=== PATIENT | female | born 1990 | race Caucasian/White ===

== ENCOUNTER 2016-12-04 11:35 | Emergency (ER) | payer OTHER ==
--- NOTE | 2016-12-04 13:22 | UC ---
Respiratory Complaint HPI - HPI Summary HPI Summary: cough for 4 weeks now has right anterior rib pain, no sob, concerned she my have broken a rib coughing - History of Current Complaint Chief Complaint: UCRespiratory Stated Complaint: URI Time Seen by Provider: 12/04/16 13:16 Hx Obtained From: Patient Hx Last Menstrual Period: 11/07/16 ?: No Onset/Duration: Sudden Onset, Lasting Days, Still Present Timing: Constant Severity Initially: Moderate Severity Currently: Moderate Character: Cough: Nonproductive Aggravating Factors: Deep Breaths Alleviating Factors: Nothing - Allergies/Home Medications Allergies/Adverse Reactions: Allergies Allergy/AdvReac Type Severity Reaction Status Date / Time No Known Allergies Allergy Verified 12/04/16 12:54 PMH/Surg Hx/FS Hx/Imm Hx Previously Healthy: Yes Endocrine History Of: Denies: Diabetes, Thyroid Disease Cardiovascular History Of: Denies: Cardiac Disorders, Hypertension Respiratory History Of: Denies: COPD, Asthma GI/ History Of: Denies: Ulcer - Surgical History Surgical History: None - Family History Known Family History: Positive: None Family History: no cardiovascular issues in family lineage - Social History Occupation: Employed Full-time Lives: With Family Alcohol Use: None Substance Use Type: Marijuana Smoking Status (MU): Heavy Every Day Tobacco Smoker Have You Smoked in the Last Year: Yes Cessation Counseling: Counseled 3+Min - 10 Min Review of Systems Constitutional: Negative Skin: Negative Eyes: Negative ENT: Negative Respiratory: Cough Cardiovascular: Negative Gastrointestinal: Negative Genitourinary: Negative Motor: Negative Neurovascular: Negative Musculoskeletal: Arthralgia - rigth anterior lower rib Neurological: Negative Psychological: Negative All Other Systems Reviewed And Are Negative: Yes Physical Exam Triage Information Reviewed: Yes Appearance: Well-Appearing, No Pain Distress, Well-Nourished Vital Signs: Initial Vital Signs Temp 98.6 F 12/04/16 12:49 Pulse 79 12/04/16 12:49 Resp 18 12/04/16 12:49 BP 103/60 12/04/16 12:49 Pulse Ox 96 12/04/16 12:49 Vital Signs Reviewed: Yes Eye Exam: Normal Eyes: Positive: Conjunctiva Clear ENT Exam: Normal ENT: Positive: Normal ENT inspection, Hearing grossly normal, Pharynx normal. Negative: Nasal congestion, Nasal drainage, Trismus, Muffled/hoarse voice Dental Exam: Normal Neck exam: Normal Neck: Positive: Supple, Nontender, No Lymphadenopathy Respiratory Exam: Normal Respiratory: Positive: Chest non-tender, Lungs clear, Normal breath sounds, No respiratory distress, No accessory muscle use Cardiovascular Exam: Normal Cardiovascular: Positive: RRR, No Murmur, Pulses Normal, Brisk Capillary Refill Musculoskeletal Exam: Normal Musculoskeletal: Positive: Strength Intact, ROM Intact, No Edema Neurological Exam: Normal Neurological: Positive: Alert, Muscle Tone Normal Psychological Exam: Normal Skin Exam: Normal UC Diagnostic Evaluation - Laboratory O2 Sat by Pulse Oximetry: 96 Diagnostic Studies Comment: no evidence of displaced rib fx, no pulmonary issue Respiratory Course/Dx - Course Course Of Treatment: ibuprofen, muscle relaxer, rest ice, nicotine cesation information follow with pcp - Differential Dx/Diagnosis Differential Diagnosis/HQI/PQRI: Bronchitis, Exacerbation Of COPD, Laryngitis, Lower Resp Infection, Pneumothorax, Other - rib fx, costal chondritis Provider Diagnoses: Rib strain (r), nicotine dependant Discharge - Discharge Plan Condition: Stable Disposition: HOME Prescriptions: Ibuprofen TAB* [Motrin TAB* 600 MG] 600 mg PO Q6H PRN #30 tab PRN Reason: Pain Patient Education Materials: Ibuprofen (By mouth), How to Stop Smoking (ED), Cigarette Smoking and Your Health (GEN), Heat Pack Application (ED), Chest Wall Pain (ED) Referrals: [facility] [Outside] - If Needed No Primary Care Phys,NOPCP [Primary Care Provider] -
[2016-12-04 13:55] VITALS: BP 109/62
--- NOTE | 2016-12-04 14:17 | RAD ---
Indication: RIGHT anterior rib pain. Upper respiratory infection. Cough for one month. History of tobacco use. Comparison: None. Technique: PA chest and 4 view RIGHT unilateral rib series Report: RIGHT inferolateral skin marker noted indicating the site of clinical concern. Negative for RIGHT rib fracture. Symmetric bilateral nipple shadows noted. No alveolar infiltrate, focal pulmonary lesion, pleural effusion, pneumothorax. The heart, pulmonary vasculature, and mediastinal contours are unremarkable. IMPRESSION: No evidence for pneumonia, RIGHT rib fracture, or pneumothorax.
== END 2016-12-04 14:44 | disposition home or self-care (01) ==
LOC: UCEAST 11:35
DX: S23.41XA Sprain of ribs, initial encounter (principal); F12.90 Cannabis use, unspecified, uncomplicated; F17.210 Nicotine dependence, cigarettes, uncomplicated
CPT/HCPCS: 99212; G0463

== ENCOUNTER 2017-04-02 00:25 | Emergency (ER) | payer OTHER ==
[2017-04-02] MEDS ORDERED: Acetaminop/Codeine 30 MG TAB* 1 TAB (300 MG/30 MG) PO ONE (00:41)
[2017-04-02] MEDS ORDERED: Ketorolac INJ* 60 MG/2 ML VIAL IM ONE (00:41)
[2017-04-02] MEDS ORDERED: Amoxicillin PO (*) 250 MG CAP PO ONE (00:41)
--- NOTE | 2017-04-02 01:26 | ED ---
Throat Pain/Nasal Congestion - HPI Summary HPI Summary: Pt here w/ Lt lower tooth pain. Has had this for a few weeks and trying to ignore it but getting progressively worse. Pain radiates into ear at times - sharp. Tooth is mostly decayed here. Denies drainage or foul taste in mouth as well as nausea, vomiting, neck pain, trouble swallowing, headache. Has had intermittent fevers. Tried tylenol earlier tonight w/ minimal relief. Has tried ibuprofen as well. States she's postponed seeing a dentist because she hates going there, but has a list and plans to call tomorrow. - History of Current Complaint Chief Complaint: EDDentalPain Time Seen by Provider: 04/02/17 00:30 Hx Obtained From: Patient - Allergies/Home Medications Allergies/Adverse Reactions: Allergies Allergy/AdvReac Type Severity Reaction Status Date / Time No Known Allergies Allergy Verified 04/02/17 00:29 PMH/Surg Hx/FS Hx/Imm Hx Previously Healthy: Yes Endocrine/Hematology History: Denies: Hx Diabetes, Hx Thyroid Disease, Autoimmune Disease Cardiovascular History: Denies: Hx Hypertension Respiratory History: Denies: Hx Asthma, Hx Chronic Obstructive Pulmonary Disease (COPD) GI History: Denies: Hx Ulcer Infectious Disease History: No Infectious Disease History: Denies: Hx Hepatitis, Hx Human Immunodeficiency Virus (HIV), Traveled Outside the [place] in Last 30 Days - Family History Known Family History: Positive: None Family History: no cardiovascular issues in family lineage - Social History Occupation: Employed Full-time Lives: With Family Alcohol Use: Rare Substance Use Type: Reports: Marijuana - few times a week Hx Tobacco Use: Yes Smoking Status (MU): Current Every Day Smoker Amount Used/How Often: 8 cigs per day Have You Smoked in the Last Year: Yes Review of Systems Constitutional: Other - see HPI Positive: Dental Pain - see HPI, Ear Ache - see HPI. Negative: Sore Throat, Nasal Discharge Negative: Chest Pain Negative: Shortness Of Breath Gastrointestinal: Negative Positive: no symptoms reported Negative: Arthralgia, Myalgia - no jaw pain Skin: Negative Neurological: Negative Psychological: Normal All Other Systems Reviewed And Are Negative: Yes Physical Exam Triage Information Reviewed: Yes Vital Signs On Initial Exam: Initial Vitals Temp Pulse Resp BP Pulse Ox 99.2 F 117 16 142/85 100 04/02/17 00:25 04/02/17 00:25 04/02/17 00:25 04/02/17 00:25 04/02/17 00:25 Vital Signs Reviewed: Yes Appearance: Positive: Well-Appearing, Well-Nourished, Pain Distress - mild to moderate Skin: Positive: Warm, Dry Head/Face: Positive: Normal Head/Face Inspection - no edema Eyes: Positive: Normal, EOMI, Conjunctiva Clear ENT: Positive: Hearing grossly normal, Pharynx normal, TMs normal. Negative: Nasal congestion, Nasal drainage, Tonsillar swelling, Tonsillar exudate Dental: Positive: Gross Decay/Caries @ - #21 - TTP w/ decayed material within cavity - surrounding tissue w/ mild erythema - no richelle edema, no d/c, no pustule, no drainage Neck: Positive: Supple, Nontender, No Lymphadenopathy Respiratory/Lung Sounds: Positive: Breath Sounds Present. Negative: Stridor Cardiovascular: Positive: Normal, RRR Abdomen Description: Positive: Nontender, Soft Bowel Sounds: Positive: Present Musculoskeletal: Positive: Normal, Strength/ROM Intact Neurological: Positive: Normal, Sensory/Motor Intact, Alert, Oriented to Person Place, Time, CN Intact II-III Psychiatric: Positive: Normal Diagnostics - Vital Signs Vital Signs Temp Pulse Resp BP Pulse Ox 04/02/17 00:38 120 99 04/02/17 00:36 99 F 108 18 121/78 100 04/02/17 00:25 99.2 F 117 16 142/85 100 - Laboratory Lab Statement: Any lab studies that have been ordered have been reviewed, and results considered in the medical decision making process. EENT Course/Dx - Diagnoses Provider Diagnoses: Dental infection Discharge - Discharge Plan Condition: Stable Disposition: HOME Prescriptions: Acetaminop/Codeine 30 MG TAB* [Tylenol/Codeine 30 MG TAB*] 1 tab PO Q6H PRN #15 tab MDD 4 PRN Reason: Pain Amoxicillin PO (*) [Amoxicillin 500 MG CAP*] 500 mg PO TID #29 cap Ibuprofen TAB* [Motrin TAB* 600 MG] 600 mg PO Q6H PRN #20 tab PRN Reason: Pain Patient Education Materials: Toothache (ED) Forms: *Work Release Referrals: No Primary Care Phys,NOPCP [Primary Care Provider] - Additional Instructions: You appear to have tooth decay triggering minor infection of the gingiva. Use oral saline rinses multiple times a day to aid in healing, swelling and pain. Complete antibiotic Stay hydrated You may alternate ibuprofen with tylenol for pain. Tylenol with codeine has been prescribed to help you sleep. Follow-up with dentist this week *If you develop trouble swallowing, facial swelling, fever, neck stiffness, headache, vomiting, return to ED
[2017-04-02 01:35] VITALS: BP 110/70
== END 2017-04-02 01:30 | disposition home or self-care (01) ==
LOC: ED 00:25
DX: K08.89 Other specified disorders of teeth and supporting structures (principal); F17.210 Nicotine dependence, cigarettes, uncomplicated
CPT/HCPCS: 96372; 99282; A9270-GY; J1885

== ENCOUNTER 2017-04-28 17:19 | Emergency (ER) | payer OTHER ==
[2017-04-28 17:32] VITALS: BP 122/65
--- NOTE | 2017-05-01 15:16 | UC ---
UC Dental HPI - HPI Summary HPI Summary: right lower dental pain and swelling - History of Current Complaint Chief Complaint: UCDentalProblem Stated Complaint: DENTAL PAIN Time Seen by Provider: 04/28/17 18:40 Hx Obtained From: Patient Hx Last Menstrual Period: 03/31/17 ?: No Onset/Duration: Gradual Onset, Lasting Days, Still Present Severity: Moderate Pain Intensity: 6 Pain Scale Used: 0-10 Numeric Aggravating: Nothing Alleviating: Nothing Related History: Previous Dental Care on Same Tooth - Allergies/Home Medications Allergies/Adverse Reactions: Allergies Allergy/AdvReac Type Severity Reaction Status Date / Time No Known Allergies Allergy Verified 04/28/17 17:32 PMH/Surg Hx/FS Hx/Imm Hx Previously Healthy: Yes - Surgical History Surgical History: None - Family History Known Family History: Positive: None Family History: no cardiovascular issues in family lineage - Social History Occupation: Employed Full-time Lives: With Family Alcohol Use: Rare Substance Use Type: Marijuana Smoking Status (MU): Current Every Day Smoker Amount Used/How Often: 8 cigs per day Have You Smoked in the Last Year: Yes Cessation Counseling: Patient Advised to Stop Review of Systems Constitutional: Negative Skin: Negative Eyes: Negative ENT: Dental Pain Respiratory: Negative Cardiovascular: Negative Gastrointestinal: Negative Genitourinary: Negative Motor: Negative Neurovascular: Negative Musculoskeletal: Negative Neurological: Negative Psychological: Negative All Other Systems Reviewed And Are Negative: Yes Physical Exam Triage Information Reviewed: Yes Appearance: Well-Appearing, No Pain Distress, Well-Nourished Vital Signs: Initial Vital Signs Temp 99.4 F 04/28/17 17:27 Pulse 79 04/28/17 17:27 Resp 18 04/28/17 17:27 BP 122/65 04/28/17 17:27 Pulse Ox 100 04/28/17 17:27 Vital Signs Reviewed: Yes Eye Exam: Normal Eyes: Positive: Conjunctiva Clear ENT Exam: Normal ENT: Positive: Normal ENT inspection, Hearing grossly normal, TMs normal. Negative: Nasal congestion, Nasal drainage, Trismus, Muffled/hoarse voice Dental Exam: Normal Neck exam: Normal Neck: Positive: Supple, Nontender Respiratory Exam: Normal Respiratory: Positive: Chest non-tender, No respiratory distress, No accessory muscle use Cardiovascular Exam: Normal Cardiovascular: Positive: RRR, Pulses Normal, Brisk Capillary Refill Musculoskeletal Exam: Normal Musculoskeletal: Positive: Strength Intact, ROM Intact, No Edema Neurological Exam: Normal Neurological: Positive: Alert, Muscle Tone Normal Psychological Exam: Normal Skin Exam: Normal Dental Complaint Course/Dx - Course Course Of Treatment: ibuprofen, amoxicillin follow with dentist shar - Differential Dx/Diagnosis Differential Diagnosis/Dx: Dental Abscess, Dental Caries, Odontogenic Pain, Post Extraction Pain Provider Diagnoses: Post extraction pain and abscess left lower jaw Discharge - Discharge Plan Condition: Stable Disposition: HOME Prescriptions: Amoxicillin PO (*) [Amoxicillin 500 MG CAP*] 500 mg PO TID #30 cap Patient Education Materials: Dental Abscess (ED), Toothache (ED) Referrals: [facility] [place] [facility] [Outside] - If Needed Additional Instructions: [facility] at [facility] Dent[facility] as planned
== END 2017-04-28 19:00 | disposition home or self-care (01) ==
LOC: UCEAST 17:19
DX: K08.409 Partial loss of teeth, unspecified cause, unspecified class (principal); M27.2 Inflammatory conditions of jaws; F12.90 Cannabis use, unspecified, uncomplicated; F17.210 Nicotine dependence, cigarettes, uncomplicated
CPT/HCPCS: 99212; G0463

== ENCOUNTER 2017-12-28 08:12 | Emergency (ER) | payer OTHER ==
[2017-12-28 08:23] VITALS: BP 115/64
--- NOTE | 2017-12-28 09:22 | UC ---
Throat Pain/Nasal Fredrick HPI - HPI Summary HPI Summary: ONSET YESTERDAY OF ST, PAIN WITH SWALLOWING, RIGHT EAR PAIN. NO FEVER. MILD COUGH AND CONGESTION. IS CONCERNED ABOUT STREP. - History of Current Complaint Chief Complaint: UCRespiratory Stated Complaint: SORE THROAT, EAR PAIN Time Seen by Provider: 12/28/17 09:11 Hx Obtained From: Patient Hx Last Menstrual Period: 12/21/17 Onset/Duration: Gradual Onset, Lasting Days, Still Present Severity: Moderate Pain Intensity: 5 Pain Scale Used: 0-10 Numeric Cough: Nonproductive Associated Signs & Symptoms: Negative: Wheezing, Fever, Rash - Allergies/Home Medications Allergies/Adverse Reactions: Allergies Allergy/AdvReac Type Severity Reaction Status Date / Time No Known Allergies Allergy Verified 12/28/17 08:23 Home Medications: Home Medications Nuva Ring 12/28/17 [History] Vitamin B Complex TAB* [B Complex-50*] 1 tab PO DAILY 12/28/17 [History Confirmed 12/28/17] PMH/Surg Hx/FS Hx/Imm Hx Previously Healthy: Yes - Surgical History Surgical History: None - Family History Known Family History: Positive: None Family History: no cardiovascular issues in family lineage - Social History Alcohol Use: Occasionally Substance Use Type: Marijuana Substance Use Comment - Amount & Last Used: weekly Smoking Status (MU): Light Every Day Tobacco Smoker Type: Cigarettes Amount Used/How Often: 8 cigs per day Have You Smoked in the Last Year: Yes Review of Systems Constitutional: Negative ENT: Sore Throat, Ear Ache, Nasal Discharge Respiratory: Cough Cardiovascular: Negative Gastrointestinal: Negative All Other Systems Reviewed And Are Negative: Yes Physical Exam Triage Information Reviewed: Yes Appearance: Well-Appearing, No Pain Distress, Well-Nourished Vital Signs: Initial Vital Signs Temp 97.5 F 12/28/17 08:18 Pulse 88 12/28/17 08:18 Resp 16 12/28/17 08:18 BP 115/64 12/28/17 08:18 Pulse Ox 99 12/28/17 08:18 Vital Signs Reviewed: Yes Eyes: Positive: Conjunctiva Clear ENT: Positive: Hearing grossly normal, Pharynx normal, TMs normal Neck: Positive: Supple, Tenderness @ - SHOTTY SPFL CERVICAL LAD - RIGHT, Enlarged Nodes @ - SHOTTY SPFL CERVICAL LAD - RIGHT Respiratory Exam: Normal Cardiovascular Exam: Normal Abdomen Description: Positive: Soft Musculoskeletal: Positive: No Edema Neurological: Positive: Alert Psychological: Positive: Age Appropriate Behavior Skin: Negative: rashes Diagnostics - Laboratory Diagnostic Studies Completed/Ordered: STREP NEG Throat Pain/Nasal Course/Dx - Differential Dx/Diagnosis Provider Diagnoses: ACUTE PHARYNGITIS Discharge - Sign-Out/Discharge Documenting (check all that apply): Discharge/Admit/Transfer - Discharge Plan Condition: Stable Disposition: HOME Patient Education Materials: Pharyngitis (ED) Referrals: No Primary Care Phys,NOPCP [Primary Care Provider] - Additional Instructions: STREP TEST NEGATIVE. YOUR SYMPTOMS ARE LIKELY VIRALLY MEDIATED AND SHOULD RESOLVE ON THEIR OWN WITH TIME. NO INDICATION FOR ANTIBIOTICS AT PRESENT. REST, HYDRATE, OTC MEDS NEEDED. SEEK FOLLOW-UP IF YOU ARE NOT IMPROVING OVER THE NEXT 1-2 WEEKS. - Billing Disposition and Condition Condition: STABLE Disposition: HOME
== END 2017-12-28 09:45 | disposition home or self-care (01) ==
LOC: UCEAST 08:12
DX: J02.9 Acute pharyngitis, unspecified (principal); F17.210 Nicotine dependence, cigarettes, uncomplicated
CPT/HCPCS: 87651; 99211; G0463

== ENCOUNTER 2019-06-06 16:19 | Emergency (ER) | payer OTHER ==
[2019-06-06 16:51] VITALS: BP 124/77
--- NOTE | 2019-06-06 16:57 | UC ---
Throat Pain/Nasal Fredrick HPI - HPI Summary HPI Summary: 28 yo female presents with sore throat and right ear pain for the last 2 days. 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 She has significant pain with swallowing and has been eating soft foods and soups due to this. Has been taking ibuprofen with mild relief of discomfort. Denies fever, chills, sinus symptoms, rash, cough. - History of Current Complaint Chief Complaint: UCEar Stated Complaint: EAR PAIN Time Seen by Provider: 06/06/19 16:57 Hx Obtained From: Patient Hx Last Menstrual Period: 3 weeks ago Onset/Duration: Sudden Onset Severity: Moderate Pain Intensity: 5 Pain Scale Used: 0-10 Numeric - Allergies/Home Medications Allergies/Adverse Reactions: Allergies Allergy/AdvReac Type Severity Reaction Status Date / Time No Known Allergies Allergy Verified 06/06/19 16:47 PMH/Surg Hx/FS Hx/Imm Hx - Additional Past Medical History Additional PMH: None - Surgical History Surgical History: None - Family History Known Family History: Positive: None Family History: no cardiovascular issues in family lineage - Social History Occupation: Employed Full-time Lives: With Family Alcohol Use: Daily Substance Use Type: Marijuana Substance Use Comment - Amount & Last Used: daily Smoking Status (MU): Light Every Day Tobacco Smoker Type: Cigarettes Amount Used/How Often: 8 cigs per day Have You Smoked in the Last Year: Yes Review of Systems All Other Systems Reviewed And Are Negative: No Constitutional: Positive: Negative Skin: Positive: Negative Eyes: Positive: Negative ENT: Positive: Sore Throat, Ear Ache Respiratory: Positive: Negative Cardiovascular: Positive: Negative Gastrointestinal: Positive: Negative Neurovascular: Positive: Negative Neurological: Positive: Negative Psychological: Positive: Negative Physical Exam - Summary Physical Exam Summary: GENERAL: NAD. WDWN. No pain distress. SKIN: No rashes, sores, lesions, or open wounds. HEENT: Head: AT/NC Eyes: Conjunctiva clear without inflammation or discharge. Ears: Hearing grossly normal. TMs intact, no bulging, erythema, or edema. Nose: Nasal mucosa pink and moist. NTTP maxillary and frontal sinus. Throat: Posterior oropharynx moderate erythema and 3+ tonsillar enlargement on right. Scant white exudates. Uvula midline. No hoarse voice or muffled voice. NECK: Supple. Mild TTP tonsillar LAD. No abscess appreciated CHEST: CTAB. No r/r/w. No accessory muscle use. Breathing comfortably and in no distress. CV: RRR.. Pulses intact. Cap refill <2seconds NEURO: Alert. PSYCH: Age appropriate behavior. Triage Information Reviewed: Yes Vital Signs: Initial Vital Signs Temp 98.4 F 06/06/19 16:46 Pulse 85 06/06/19 16:46 Resp 18 06/06/19 16:46 BP 124/77 06/06/19 16:46 Pulse Ox 100 06/06/19 16:46 Laboratory Tests 06/06/19 17:08 Group A Strep Rapid Negative Vital Signs Reviewed: Yes Throat Pain/Nasal Course/Dx - Course Course Of Treatment: POC strep negative. Given her exam and exposure to strep at her place of work - will treat with amoxicillin and send her throat culture for full culture. - Differential Dx/Diagnosis Provider Diagnosis: Pharyngitis Discharge ED - Sign-Out/Discharge Documenting (check all that apply): Patient Departure All imaging exams completed and their final reports reviewed: No Studies - Discharge Plan Condition: Stable Disposition: HOME Prescriptions: Amoxicillin PO (*) [Amoxicillin 400 MG/5 ML SUSP*] 480 mg PO BID #120 ml Patient Education Materials: Pharyngitis (ED) Referrals: Aimee Mejia MD [Primary Care Provider] - Additional Instructions: If you develop a fever, shortness of breath, chest pain, new or worsening symptoms - please call your PCP or go to the ED immediately. - Billing Disposition and Condition Condition: STABLE Disposition: Home
--- NOTE | 2019-06-08 15:49 | UC ---
- Progress Note Progress Note: Tx'd for strep based on exposure, neg rapid strep, cultures negative, nurse to call and stop abx. f/u with PCP if repeat symptoms. -Hailey LEVI Course/Dx - Diagnoses Provider Diagnoses: Pharyngitis Discharge ED - Sign-Out/Discharge Documenting (check all that apply): Patient Departure All imaging exams completed and their final reports reviewed: No Studies - Discharge Plan Condition: Stable Disposition: HOME Prescriptions: Amoxicillin PO (*) [Amoxicillin 400 MG/5 ML SUSP*] 480 mg PO BID #120 ml Patient Education Materials: Pharyngitis (ED) Referrals: Aimee Mejia MD [Primary Care Provider] - Additional Instructions: If you develop a fever, shortness of breath, chest pain, new or worsening symptoms - please call your PCP or go to the ED immediately. - Billing Disposition and Condition Condition: STABLE Disposition: Home
== END 2019-06-06 17:32 | disposition home or self-care (01) ==
LOC: UCEAST 16:19
DX: J02.9 Acute pharyngitis, unspecified (principal); H92.01 Otalgia, right ear; F17.210 Nicotine dependence, cigarettes, uncomplicated
CPT/HCPCS: 87070; 87651; 99212; G0463

== ENCOUNTER 2022-07-02 09:06 | Observation (INO) ==
[2022-07-02] MEDS ORDERED: Ondansetron 4 mg VIAL 2 MG/ML 2 ml VIAL IV ONE (09:48)
[2022-07-02] MEDS ORDERED: Acetaminophen IV 1 GM/100ML 1,000 MG/100 ML BAG IV ONE (09:49)
[2022-07-02 10:19] LABS: ABS Lymphocytes 0.9 10^3/ul (1.0-4.8); ABS Monocytes 0.7 10^3/ul (0-0.8); ABS Neutrophils 9.6 10^3/ul (1.5-7.7); Eosinophil % 0.3 %; Hematocrit 41 % (35-47); Hemoglobin 13.8 g/dL (12.0-16.0); Lymphocyte % 7.8 %; Mean Corpuscular HGB Conc 34 g/dL (31-36); Mean Corpuscular Hemoglobin 33 pg (27-31); Mean Corpuscular Volume 97 fL (80-97); Mean Platelet Volume 8.6 fL (7.4-10.4); Platelet Count 156 10^3/uL (150-450); Red Cell Distribution Width 14 % (10-15); White Blood Count 11.2 10^3/uL (3.5-10.8)
[2022-07-02 10:29] LABS: INR 1.04 (0.89-1.11)
[2022-07-02 10:51] LABS: ALT 32 U/L (7-52); AST 41 U/L (13-39); Albumin 4.2 g/dL (3.2-5.2); Albumin/Globulin Ratio 1.4 (1-3); Alkaline Phosphatase 92 U/L (35-149); Anion Gap 19 mmol/L (2-11); Blood Urea Nitrogen 9 mg/dL (6-24); C Reactive Protein 366.12 mg/L (<8.01); CO2 Carbon Dioxide 20 mmol/L (22-32); Calcium 8.1 mg/dL (8.6-10.3); Chloride 94 mmol/L (101-111); Glucose 96 mg/dL (70-100); Magnesium 1.9 mg/dL (1.9-2.7); Potassium 3.3 mmol/L (3.5-5.0); Sodium 133 mmol/L (135-145); Total Protein 7.2 g/dL (6.4-8.9); eGFR CKD-EPI 118.5 (>60)
[2022-07-02 10:57] LABS: HCG Pregnancy < 0.60 mIU/mL
[2022-07-02] MEDS ORDERED: Lactated Ringers 1000 ml BAG 1,000 ML IV ONE ×2 (11:17→11:50)
[2022-07-02] MEDS ORDERED: Morphine 4 MG/ML VIAL (1 ml) IV ONE (11:17)
[2022-07-02 11:20] LABS: Urine Appearance Cloudy; Urine Bilirubin Negative (Negative); Urine Blood 2+ (Negative); Urine Color Yellow; Urine Glucose Negative (Negative); Urine Ketones 2+ (Negative); Urine Nitrite Negative (Negative); Urine Protein 2+(100 mg/dL) (Negative); Urine Specific Gravity 1.026 (1.002-1.030); Urine Urobilinogen Negative (Negative)
[2022-07-02] MEDS ORDERED: Iohexol 350 (CONTRAST) 500 ML MDV IV ONE (11:21)
[2022-07-02 11:27] LABS: Urine Bacteria 1+ (Absent); Urine Red Blood Cell Trace(0-2/hpf) (Absent); Urine Squamous Epithelial Cell Present (Absent); Urine White Blood Cell Trace(0-5/hpf) (Absent)
[2022-07-02 11:36] LABS: Lipase 3272 U/L (11.0-82.0)
[2022-07-02 12:36] LABS: Triglycerides 87 mg/dL
[2022-07-02] MEDS: KCL 20 MEQ/100 ML IVPREMIX 20 MEQ/100 ML BAG IV SCH ×2 (13:13→15:29)
[2022-07-02] MEDS ORDERED: Magnesium Sulfate 2 gm BAG 2 GM/50 ML BAG IVPB ONE (13:43)
[2022-07-02] MEDS ORDERED: Lactated Ringers 1000 ml BAG 1,000 ML IV SCH (14:00)
[2022-07-02] MEDS: Morphine 2 MG/ML SYRINGE IV PRN ×2 (14:20→21:43)
[2022-07-02 15:27] LABS: LDH 202 U/L (140-271)
[2022-07-02] MEDS: HYDROmorphone 1 MG/1 ML SYRINGE IV SLOW PU PRN ×2 (16:35→23:58)
[2022-07-02] MEDS: Ondansetron 4 mg VIAL 2 MG/ML 2 ml VIAL IV PRN (16:35)
[2022-07-02] MEDS: Thiamine 100 MG/ML 2 ml VIAL 100 MG in NS 0.9% 50 ML 50 ML IV SCH (20:40)
[2022-07-02] MEDS: Magnesium Hydroxide LIQ 30 ML UDC PO SCH (20:41)
[2022-07-02] MEDS: Lactated Ringers 1000 ml BAG 1,000 ML IV SCH (21:33)
[2022-07-03] MEDS: Ondansetron 4 mg VIAL 2 MG/ML 2 ml VIAL IV PRN ×2 (00:05→10:35)
[2022-07-03] MEDS: Lactated Ringers 1000 ml BAG 1,000 ML IV SCH ×4 (00:31→23:26)
[2022-07-03] MEDS: Morphine 2 MG/ML SYRINGE IV PRN ×4 (01:49→18:41)
[2022-07-03 05:52] LABS: CO2 Carbon Dioxide 19 mmol/L (22-32); Calcium 7.4 mg/dL (8.6-10.3); Chloride 99 mmol/L (101-111); Hematocrit 35 % (35-47); Hemoglobin 11.4 g/dL (12.0-16.0); Mean Corpuscular HGB Conc 33 g/dL (31-36); Mean Corpuscular Hemoglobin 33 pg (27-31); Mean Corpuscular Volume 102 fL (80-97); Red Blood Count 3.43 10^6 /uL (3.70-4.87); Red Cell Distribution Width 14 % (10-15); Sodium 129 mmol/L (135-145); White Blood Count 10.3 10^3/uL (3.5-10.8)
[2022-07-03 05:53] LABS: Anion Gap 11 mmol/L (2-11)
[2022-07-03 05:58] LABS: Blood Urea Nitrogen 5 mg/dL (6-24); Glucose 89 mg/dL (70-100); eGFR CKD-EPI 129.8 (>60)
[2022-07-03 06:56] LABS: Magnesium 2.2 mg/dL (1.9-2.7); Potassium Redraw 3.2 mmol/L (3.5-5.0)
[2022-07-03] MEDS ORDERED: Potassium Chlor 20 meq TAB.ER PO ONE (07:25)
[2022-07-03 07:37] LABS: ABS Eosinophils 0.2 10^3/ul (0-0.6); ABS Lymphocytes 1.2 10^3/ul (1.0-4.8); ABS Monocytes 0.9 10^3/ul (0-0.8); Eosinophil % 1.5 %; Platelet Count Platelets clumped. 10^3/uL (150-450)
[2022-07-03] MEDS: Magnesium Hydroxide LIQ 30 ML UDC PO SCH (08:53)
[2022-07-03] MEDS ORDERED: Potassium Chloride LIQUID 20 MEQ/15 ML LIQUID PO ONE (09:00)
[2022-07-03 13:43] LABS: TSH Ultra Thyroid Stim Horm 2.22 mcIU/mL (0.34-5.60)
[2022-07-03 13:54] LABS: Folate 3.63 ng/mL (5.90-24.80)
[2022-07-03] MEDS: HYDROmorphone 1 MG/1 ML SYRINGE IV SLOW PU PRN (23:22)
[2022-07-03] MEDS: Thiamine 100 MG/ML 2 ml VIAL 100 MG in NS 0.9% 50 ML 50 ML IV SCH (23:24)
[2022-07-04] MEDS: HYDROmorphone 1 MG/1 ML SYRINGE IV SLOW PU PRN (03:23)
[2022-07-04 06:03] LABS: Hematocrit 32 % (35-47); Hemoglobin 10.7 g/dL (12.0-16.0); Mean Corpuscular HGB Conc 34 g/dL (31-36); Mean Corpuscular Hemoglobin 33 pg (27-31); Mean Corpuscular Volume 98 fL (80-97); Mean Platelet Volume 8.4 fL (7.4-10.4); Platelet Count 195 10^3/uL (150-450); Red Blood Count 3.26 10^6 /uL (3.70-4.87); Red Cell Distribution Width 14 % (10-15); White Blood Count 8.8 10^3/uL (3.5-10.8)
[2022-07-04 06:04] LABS: ABS Eosinophils 0.1 10^3/ul (0-0.6); ABS Lymphocytes 1.3 10^3/ul (1.0-4.8); ABS Neutrophils 6.4 10^3/ul (1.5-7.7); Eosinophil % 1.5 %; Lymphocyte % 14.5 %
[2022-07-04 06:48] LABS: Calcium 8.2 mg/dL (8.6-10.3); Magnesium 2.1 mg/dL (1.9-2.7); Potassium 3.6 mmol/L (3.5-5.0); eGFR CKD-EPI 127.9 (>60)
[2022-07-04] MEDS ORDERED: oxyCODONE/Acetamin 5/325 mg TAB PO PRN (07:18)
[2022-07-04] MEDS ORDERED: Morphine 2 MG/ML SYRINGE IV PRN ×2 (07:18→07:28)
[2022-07-04] MEDS: Lactated Ringers 1000 ml BAG 1,000 ML IV SCH (07:42)
[2022-07-04 11:23] VITALS: BP 130/89
== END 2022-07-04 13:00 | disposition home or self-care (01) ==
LOC: EDACCT# → ED 09:06 → EDHOLD 09:06 → MED 17:35
PROVIDERS: ADMIT Internal Medicine; ATTEND Internal Medicine